=== PATIENT | female | born 1960 | race Caucasian/White ===

== ENCOUNTER 2016-10-21 22:26 | Emergency (ER) | payer OTHER ==
[~2016-10-21] VITALS: Ht 172.7 cm; Wt 81.5 kg
[2016-10-21 22:27] VITALS: BP 188/88; PULSE 86; RESP 18; TEMP 97.9; O2SAT 99
[2016-10-21 22:59] VITALS: BP 126/82; PULSE 88; RESP 16; O2SAT 100
[2016-10-21] MEDS ORDERED: METH2.5T PO (23:04)
[2016-10-21] MEDS ORDERED: ALPR0.5T3 PO (23:04)
[2016-10-21] MEDS ORDERED: LISI-519 PO (23:04)
[2016-10-21] MEDS ORDERED: SERT-132 PO (23:04)
[2016-10-22] MEDS ORDERED: SODIUM CHLORIDE 0.9% FLUSH 10 ML FLUSH IV FLUSH PRN
--- NOTE | 2016-10-22 00:10 | RADRPT ---
EXAM DATE/TIME: 10/21/2016 23:49 [facility] COMPARISON: No previous studies available for comparison. INDICATIONS : Short of breath. MEDICAL HISTORY : Hypertension. SURGICAL HISTORY : None. ENCOUNTER: Initial ACUITY: 1 day PAIN SCORE: 0/10 LOCATION: Bilateral chest FINDINGS: A single view of the chest demonstrates the lungs to be symmetrically aerated without evidence of mas s, infiltrate or effusion. The cardiomediastinal contours are unremarkable. Osseous structures are intact. CONCLUSION: No acute disease. Boogie Victoria Jr., MD on October 22, 2016 at 0:08 Board Certified Radiologist. This report was verified electronically.
[2016-10-22 00:17] LABS: AUTOMATED NEUTROPHIL # 7.5 TH/MM3 (1.8-7.7); BASOPHIL # 0.1 TH/MM3 (0-0.2); BASOPHIL % 0.8 % (0.0-2.0); EOSINOPHIL # 0.5 TH/MM3 (0-0.4); EOSINOPHIL % 3.9 % (0.0-4.0); HEMATOCRIT 33.6 % (35.0-46.0); HEMO FLAGS DIFF FINAL; LYMPH % 27.4 % (9.0-44.0); LYMPHOCYTE # 3.5 TH/MM3 (1.0-4.8); MEAN CELL VOLUME 84.4 FL (80.0-100.0); MEAN CORPUSCULAR HEMOGLOBIN 27.5 PG (27.0-34.0); MEAN CORPUSCULAR HGB CONC 32.7 % (32.0-36.0); MONO % 9.1 % (0.0-8.0); NEUT % 58.8 % (16.0-70.0); PLATELET COUNT 423 TH/MM3 (150-450); RED BLOOD COUNT 3.99 MIL/MM3 (4.00-5.30); RED CELL DISTRIBUTION WIDTH 14.1 % (11.6-17.2); WHITE BLOOD COUNT 12.7 TH/MM3 (4.0-11.0)
[2016-10-22 00:19] LABS: BACTERIA, URINE OCC /hpf; BLOOD, URINE NEG (NEG); COMMENT (UR) CULT NOT INDICATED; CULTURE IF INDICATED CULT NOT INDICATED; GLUCOSE,URINE NEG (NEG); HYALINE CAST, URINE 1 /lpf (RARE); KETONE, URINE NEG (NEG); MUCUS URINE FEW /lpf (OCC); NITRITE,URINE NEG (NEG); SQUAMOUS EPITHELIAL CELL URINE 6 /hpf (0-5); URINE COLOR YELLOW (YELLW/STRAW)
[2016-10-22 00:37] LABS: ALKALINE PHOSPHATASE 127 U/L (45-117); ALT (GPT) 22 U/L (10-53); ANION GAP 12 MEQ/L (5-15); AST (GOT) 18 U/L (15-37); BICARBONATE 24.9 MEQ/L (21.0-32.0); BLOOD UREA NITROGEN 10 MG/DL (7-18); CHLORIDE 105 MEQ/L (98-107); GLOMERULAR FILTRATION RATE 92 ML/MIN (>89); SODIUM (NA) 142 MEQ/L (136-145); TOTAL BILIRUBIN ADULT 0.2 MG/DL (0.2-1.0)
[2016-10-22 00:38] LABS: POTASSIUM 2.8 MEQ/L (3.5-5.1)
[2016-10-22] MEDS ORDERED: IOHEXOL 350 MG/ML 10 ML VIAL (for RAD DIAG) IV ONE (01:14)
--- NOTE | 2016-10-22 01:35 | RADRPT ---
EXAM DATE/TIME: 10/22/2016 01:10 [facility] COMPARISON: No previous studies available for comparison. INDICATIONS : Abdomen pain with vomiting and diarrhea. IV CONTRAST: 95 cc Omnipaque 350 (iohexol) IV ORAL CONTRAST: No oral contrast ingested. RADIATION DOSE: 13.36 CTDIvol (mGy) MEDICAL HISTORY : None SURGICAL HISTORY : None. ENCOUNTER: Initial ACUITY: 1 day PAIN SCALE: 8/10 LOCATION: Bilateral abdomen TECHNIQUE: Volumetric scanning of the abdomen and pelvis was performed. Using automated exposure control and ad justment of the mA and/or kV according to patient size, radiation dose was kept as low as reasonably achievable to obtain optimal diagnostic quality images. FINDINGS: LOWER LUNGS: The visualized lower lungs are clear. LIVER: Homogeneous density without lesion. There is no dilation of the biliary tree. No calcified gallston es. SPLEEN: Normal size without lesion. PANCREAS: Within normal limits. KIDNEYS: Normal in size and shape. There is no mass, stone or hydronephrosis. ADRENAL GLANDS: Within normal limits. VASCULAR: There is no aortic aneurysm. BOWEL/MESENTERY: An acute inflammatory process is seen involving the sigmoid colon. Numerous diverticuli are seen. The re is wall thickening and stranding of the adjacent mesentery. No free air or free fluid. No obstruct ion. No abscess. Remaining bowel structures are unremarkable. ABDOMINAL WALL: Within normal limits. RETROPERITONEUM: There is no lymphadenopathy. BLADDER: No wall thickening or mass. REPRODUCTIVE: Within normal limits. INGUINAL: There is no lymphadenopathy or hernia. MUSCULOSKELETAL: Within normal limits for patient age. CONCLUSION: 1. Acute sigmoid diverticulitis without obstruction, perforation, or abscess. Boogie Victoria Jr., MD on October 22, 2016 at 1:32 Board Certified Radiologist. This report was verified electronically.
--- NOTE | 2016-10-22 01:40 | PD ---
HPI Chief Complaint: Abdominal Pain Time Seen by Provider: 23:48 Travel History International Travel<30 days: No Contact w/Intl Traveler<30days: No Traveled to known affect area: No History of Present Illness HPI 56-year-old female presents to the emergency department for 1 month of lower abdominal pain. Patient has had episodes of nausea and intermittent vomiting. Patient denies bilious emesis hematemesis coffee-ground emesis also denies melena or hematochezia. Patient denies dysuria frequency urgency or hematuria. Patient is a intermittent episodes of flank pain. Patient denies prior history of abdominal surgeries. Patient denies history of gastritis peptic ulcer disease pancreatitis or gallstone disease colitis or diverticulitis. No prior history of inflammatory bowel disease. Patient did contact her primary care provider who encouraged her to come to the emergency room for evaluation. Patient recently just returned from [place] and was encouraged to come to the emergency room as soon as she returned home. Patient denies other concerns or complaints. Patient is unable to identify exacerbating or alleviating factors. Abdominal pain 6/10 in intensity. PFSH Past Medical History Narrative Medical Hypertension, rheumatoid arthritis, anxiety depression; no tobacco use alcohol use; nursing notes reviewed Medical History: Denies Significant Hx ?: Not Past Surgical History Surgical History: No Previous Surgery Social History Alcohol Use: No Tobacco Use: No Allergies-Medications (Allergen,Severity, Reaction): Coded Allergies: No Known Allergies (Unverified , 10/21/16) Reported Meds & Prescriptions Reported Meds & Active Scripts Active Lortab (Hydrocodone-Acetaminophen) 5-325 Mg Tab 1 Tab PO Q6H PRN Phenergan (Promethazine HCl) 25 Mg Tab 25 Mg PO Q6H PRN Cipro (Ciprofloxacin HCl) 500 Mg Tab 500 Mg PO BID 7 Days Flagyl (Metronidazole) 500 Mg Tab 500 Mg PO QID 10 Days Reported Methotrexate 2.5 Mg Tab 2.5 Mg PO Q7D Lisinopril 5 Mg Tab 5 Mg PO DAILY Sertraline (Sertraline HCl) 50 Mg Tab 50 Mg PO DAILY Alprazolam 0.5 Mg Tab 0.5 Mg PO Q4H PRN Review of Systems Except as stated in HPI: all other systems reviewed are Neg General / Constitutional: No: Fever, Chills HENT: No: Congestion Cardiovascular: No: Chest Pain or Discomfort Respiratory: No: Shortness of Breath Gastrointestinal: Positive: Nausea, Vomiting, Abdominal Pain, No: Diarrhea, Hematemesis, Hematochezia, Loss of Appetite Genitourinary: No: Urgency, Frequency, Dysuria Musculoskeletal: No: Myalgias, Arthralgias Skin: No Rash Neurologic: No: Weakness Psychiatric: No: Anxiety Hematologic/Lymphatic: No: Easy Bruising Physical Exam Narrative GENERAL: Well-developed well-nourished female in no acute distress no respiratory distress SKIN: Warm and dry. HEAD: Normocephalic. EYES: No scleral icterus. No injection or drainage. NECK: Supple, trachea midline. No JVD or lymphadenopathy. CARDIOVASCULAR: Regular rate and rhythm without murmurs, gallops, or rubs. RESPIRATORY: Breath sounds equal bilaterally. No accessory muscle use. GASTROINTESTINAL: Abdomen soft, bilateral lower quadrant tenderness to palpation without guarding or rebound, nondistended. MUSCULOSKELETAL: No cyanosis, or edema. BACK: Nontender without obvious deformity. No CVA tenderness. Data Data Last Documented VS Vital Signs Date Time Temp Pulse Resp B/P Pulse Ox O2 Delivery O2 Flow Rate FiO2 10/22/16 02:00 72 16 120/81 97 Room Air 10/21/16 22:27 97.9 Orders Complete Blood Count With Diff (10/21/16 23:48) Comprehensive Metabolic Panel (10/21/16 23:48) Lipase (10/21/16 23:48) Urinalysis - C+S If Indicated (10/21/16 23:48) Iv Access Insert/Monitor (10/21/16 23:48) Ecg Monitoring (10/21/16 23:48) Oximetry (10/21/16 23:48) Sodium Chloride 0.9% Flush (Ns Flush) (10/22/16 00:00) Chest, Single Ap (10/21/16 23:48) Ct Abd/Pel W Iv Contrast(Rout) (10/22/16 ) Potassium Chlor 10 Meq Premix (Kcl 10 Me (10/22/16 01:00) Iohexol 350 Inj (Omnipaque 350 Inj) (10/22/16 01:14) Metronidazole 500 Mg Inj (Flagyl 500 Mg (10/22/16 01:45) Potassium Chloride (Kcl) (10/22/16 01:45) Levofloxacin 500 Mg Premix Inj (Levaquin (10/22/16 01:45) Sodium Chlor 0.9% 1000 Ml Inj (Ns 1000 M (10/22/16 01:45) Morphine Inj (Morphine Inj) (10/22/16 02:00) Labs Laboratory Tests Test 10/21/16 10/21/16 23:00 23:30 Urine Color YELLOW Urine Turbidity HAZY Urine pH 6.0 Urine Specific [place] 1.020 Urine Protein TRACE mg/dL Urine Glucose (UA) NEG mg/dL Urine Ketones NEG mg/dL Urine Occult Blood NEG Urine Nitrite NEG Urine Bilirubin NEG Urine Urobilinogen LESS THAN 2.0 MG/DL Urine Leukocyte Esterase MOD Urine RBC 1 /hpf Urine WBC 2 /hpf Urine Squamous Epithelial 6 /hpf Cells Urine Bacteria OCC /hpf Urine Hyaline Casts 1 /lpf Urine Mucus FEW /lpf Microscopic Urinalysis Comment CULT NOT INDICATED White Blood Count 12.7 TH/MM3 Red Blood Count 3.99 MIL/MM3 Hemoglobin 11.0 GM/DL Hematocrit 33.6 % Mean Corpuscular Volume 84.4 FL Mean Corpuscular Hemoglobin 27.5 PG Mean Corpuscular Hemoglobin 32.7 % Concent Red Cell Distribution Width 14.1 % Platelet Count 423 TH/MM3 Mean Platelet Volume 8.6 FL Neutrophils (%) (Auto) 58.8 % Lymphocytes (%) (Auto) 27.4 % Monocytes (%) (Auto) 9.1 % Eosinophils (%) (Auto) 3.9 % Basophils (%) (Auto) 0.8 % Neutrophils # (Auto) 7.5 TH/MM3 Lymphocytes # (Auto) 3.5 TH/MM3 Monocytes # (Auto) 1.2 TH/MM3 Eosinophils # (Auto) 0.5 TH/MM3 Basophils # (Auto) 0.1 TH/MM3 CBC Comment DIFF FINAL Differential Comment Sodium Level 142 MEQ/L Potassium Level 2.8 MEQ/L Chloride Level 105 MEQ/L Carbon Dioxide Level 24.9 MEQ/L Anion Gap 12 MEQ/L Blood Urea Nitrogen 10 MG/DL Creatinine 0.67 MG/DL Estimat Glomerular Filtration 92 ML/MIN Rate Random Glucose 83 MG/DL Calcium Level 9.1 MG/DL Total Bilirubin 0.2 MG/DL Aspartate Amino Transf 18 U/L (AST/SGOT) Alanine Aminotransferase 22 U/L (ALT/SGPT) Alkaline Phosphatase 127 U/L Total Protein 8.0 GM/DL Albumin 3.2 GM/DL Lipase 165 U/L MDM Medical Decision Making Medical Screen Exam Complete: Yes Emergency Medical Condition: Yes Medical Record Reviewed: Yes Interpretation(s) CT abd/pel: CONCLUSION: 1. Acute sigmoid diverticulitis without obstruction, perforation, or abscess. Boogie Victoria Jr., MD on October 22, 2016 at 1:32 Board Certified Radiologist. This report was verified electronically. 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 @2:47 AM patient reports feeling clinically improved and is desirous of being discharged to home handling oral hydration well will attempt outpatient trial of oral antibiotics however have gone in detail with patient indications to return to the emergency department. @ 3:30 AM pain controlled no nausea or vomiting and tolerating oral hydration and oral potassium replacement along with IV potyassium replacement. Patient stable for trial of oputpatient antibiotic managment of acute diverticulitis -- afebrile no abscess no perforation no N/V and VSS. Sepsis Criteria SIRS Criteria (2 or more): WBC > 13544, < 4000 or > 10% bands Diagnosis Primary Impression: Sigmoid diverticulitis Additional Impression: Hypokalemia Referrals: Primary Care Physician call for appointment Patient Instructions: Narcotic given in the ED, General Instructions Additional Instructions: Increase fluid hydration Add potassium foods and beverages to dietary intake Follow clear liquid diet for next 12-24 hours advance as tolerated to bland/ soft diet then to full diet as tolerated Complete course of antibiotic as prescribed Monitor temperature every 4 hours with thermometer take acetaminophen/Tylenol every 4 hours as needed for fever 100.4F or greater Take pain medication as prescribed as needed May use Phenergan as prescribed as needed for nausea or vomiting Return to the emergency department for pain, fever, vomiting, or any concerns Follow-up with primary care physician call office in a.m. to schedule follow-up appointment Med/Other Pt SpecificInfo: Prescription(s) given Scripts Hydrocodone-Acetaminophen (Lortab)5-325 Mg Tab1 Tab PO Q6H PRN (PAIN) #10 TAB Ref 0 Prov:Daysi Mejia MD 10/22/16 Promethazine (Phenergan)25 Mg Tab25 Mg PO Q6H PRN (Nausea/Vomiting) #10 TAB Ref 0 Prov:Daysi Mejia MD 10/22/16 Ciprofloxacin (Cipro)500 Mg [id number] Mg PO BID 7 Days Ref 0 Prov:Daysi Mejia MD 10/22/16 Metronidazole (Flagyl)500 Mg [id number] Mg PO QID 10 Days Ref 0 Prov:Daysi Mejia MD 10/22/16 Daysi Mejia MD October 22, 2016 01:40
[2016-10-22] MEDS ORDERED: SODIUM CHLOR 0.9% 1000 ML INJ 1,000 ML IV ONE (01:45)
[2016-10-22] MEDS ORDERED: LEVOFLOXACIN 500 MG PREMIX INJ 100 ML IV ONE (01:45)
[2016-10-22] MEDS ORDERED: metroNIDAZOLE 500 MG INJ 100 ML IV ONE (01:45)
[2016-10-22] MEDS ORDERED: POTASSIUM CHLORIDE 20 MEQ CONTROLLED RELEASE TAB PO ONE (01:45)
[2016-10-22] MEDS: POTASSIUM CHLOR 10 MEQ PREMIX 100 ML IV SCH ×3 (01:54→03:00)
[2016-10-22 02:00] VITALS: BP 120/81; PULSE 72; RESP 16; O2SAT 97
[2016-10-22] MEDS ORDERED: MORPHINE SULFATE 4 MG/ML INJ IV PUSH ONE (02:00)
[2016-10-22] MEDS ORDERED: HYDR-3533 PO (02:47)
[2016-10-22] MEDS ORDERED: METR-1 PO (02:47)
[2016-10-22] MEDS ORDERED: PROM25TA5 PO (02:47)
[2016-10-22] MEDS ORDERED: CIPR-9 PO (02:47)
[2016-10-22 04:25] VITALS: BP 149/86
== END 2016-10-22 04:26 | disposition home or self-care (01) ==
LOC: NEPC 22:26 → EEVIPCON 22:26 → NEPC 10-22 04:26
DX: K57.32 Diverticulitis of large intestine without perforation or abscess without bleeding (principal); E87.6 Hypokalemia; Z79.899 Other long term (current) drug therapy
CPT/HCPCS: 71010; 74177; 80053; 81001; 83690; 85025; 96374; 96375; 99284; J1956; J2270; J3480; J7030; Q9967